=== PATIENT | male | born 2000 | race Caucasian/White ===

== ENCOUNTER 2022-07-05 19:45 | Inpatient (IN) | payer BC, MEDICAID ==
[2022-07-05 19:55] VITALS: RESP 18
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
[2022-07-06] MEDS ORDERED: LORazepam 1 MG TAB PO PRN (00:07)
[2022-07-06] MEDS ORDERED: MAG HYDROX/AL HYDROX/SIMETH 30 ML CUP PO PRN (00:07)
[2022-07-06] MEDS ORDERED: HALOPERIDOL LACTATE 5 MG/ML 1 ML VIAL IM PRN (00:07)
[2022-07-06] MEDS ORDERED: MAGNESIUM HYDROXIDE 2,400 MG/10 ML CUP PO PRN (00:07)
[2022-07-06] MEDS ORDERED: LORazepam 2 MG/ML INJ IM PRN (00:14)
[2022-07-06] MEDS ORDERED: haloperidoL 5 MG TAB PO PRN (00:15)
[2022-07-06 01:26] LABS: Amorphous Sediment,Urine Rare /hpf; Appearance,Urine Turbid (Clear); Bacteria,Urine Rare /hpf; Bilirubin,Urine Negative (Negative); Blood,Urine Negative (Negative); Color,Urine Yellow; Glucose,Urine (UA) Negative (Negative); Ketones,Urine Negative (Negative); Leukocyte Esterase,Urine Negative (Negative); Mucus,Urine Occasional /hpf; Nitrite,Urine Negative (Negative); Protein,Urine Trace (Negative); Specific Gravity,Urine 1.025 (1.001-1.035); WBC,Urine 1 /hpf (0-5)
[2022-07-06] MEDS: metFORMIN 500 MG TAB PO SCH (08:16)
[2022-07-06] MEDS: DEXMETHYLPHENIDATE HCL 30 MG PO SCH (08:47)
[2022-07-06] MEDS ORDERED: risperiDONE 0.5 MG TAB PO SCH (09:00)
[2022-07-06 09:19] LABS: Urine Alcohol Negative (Negative); Urine Barbiturate Negative (Negative); Urine Cocaine Negative (Negative); Urine Methadone Negative (Negative); Urine Opiates Negative (Negative); Urine Phencyclidine Negative (Negative)
[2022-07-06] MEDS: ACETAMINOPHEN TAB 325 MG TAB PO PRN ×2 (09:33→18:50)
[2022-07-06 10:53] LABS: Basophils % (A) 0 %; Eosinophils # (A) 0.1 k/uL (0-0.7); Eosinophils % (A) 2 %; HCT 42.8 % (39.0-53.0); HGB 14.3 gm/dL (13.0-17.5); Lymphocytes # (A) 1.2 k/uL (1.0-4.8); Lymphocytes % (A) 17 %; MCH 28.1 pg (25.0-35.0); MCHC 33.4 g/dL (31.0-37.0); MCV 84.2 fL (80.0-100.0); Mean Platelet Volume 8.5; Monocytes # (A) 0.4 k/uL (0-1.0); Monocytes % (A) 5 %; Neutrophils # (A) 5.2 k/uL (1.3-7.7); Neutrophils % (A) 74 %; Platelet Count 240 k/uL (150-450); RBC 5.09 m/uL (4.30-5.90); RDW 13.4 % (11.5-15.5)
[2022-07-06 11:22] LABS: ALT 25 U/L (4-49); AST 26 U/L (17-59); African American GFR (CKD) >90 (>60 ml/min/1.73 sqM); Albumin 4.1 g/dL (3.5-5.0); Alkaline Phosphatase 119 U/L (38-126); Anion Gap 9 mmol/L; Blood Urea Nitrogen 14 mg/dL (9-20); Calcium 9.3 mg/dL (8.4-10.2); Carbon Dioxide 26 mmol/L (22-30); Chloride 104 mmol/L (98-107); Glucose 96 mg/dL (74-99); Non-African American GFR(CKD) >90 (>60 ml/min/1.73 sqM); Potassium 4.5 mmol/L (3.5-5.1); Sodium 139 mmol/L (137-145); Total Bilirubin 0.5 mg/dL (0.2-1.3); Total Protein 7.1 g/dL (6.3-8.2)
--- NOTE | 2022-07-06 13:24 | P.MDCNMH ---
History of Present Illness H&P Date: 07/06/22 This is a 22-year-old male was recently brought to the emergency department with family and had recent changes in medication including his risperidone that had been titrated down and started noticing some increasing aggression and violence with his family. Patient was brought here voluntarily and agreeable to come to the psychiatric unit for evaluation. Patient reports he follows with Dr. Bruce in the outpatient setting with no significant past medical history other than ADD/ADHD with anxiety/bipolar depression. Patient reports he had been slightly overwhelmed at home and having thoughts of suicide and reports to policy writer he is not suicidal he just feels as if he is not in control of his thoughts since the medication changes. Patient denies chest pain or shortness of breath. Patient reports he is eating and tolerating. Patient reports his sleep is all over the place and he also mentioned "I just need a break". Patient reports he has been attending group therapy sessions and compliant with medications. Review Of Systems: Constitutional: No fever, no chills, no night sweats. No weight change. No weakness, fatigue or lethargy. No daytime sleepiness. EENT: No headache. No blurred vision or double vision, no loss of vision. No loss of Hearing, no ringing in the ears, no dizziness. No nasal drainage or congestion. No epistaxis. No sore throat. Lungs: No shortness of breath, cough, no sputum production. No wheezing. Cardiovascular: No chest pain, no lower extremity edema. No palpitations. No paroxysmal nocturnal dyspnea. No orthopnea. No lightheadedness or dizziness. No syncopal episodes. Abdominal: No abdominal pain. No nausea, vomiting. No diarrhea. No constipation. No bloody or tarry stools.. No loss of appetite. Genitourinary: No dysuria, increased frequency, urgency. No urinary retention. Musculoskeletal: No myalgias. No muscle weakness, no gait dysfunction, no frequent falls. No back pain. No neck pain. Integumentary: No wounds, no lesions. No rash or pruritus. No unusual bruising. No change in hair or nails. Neurologic: No aphasia. No facial droop. No change in mentation. No head injury. No headache. No paralysis. No paresthesia. Psychiatric: Reports increased anxiety and depression with increased aggression and mood swings Endocrine: No abnormal blood sugars. No weight change. No excessive sweating or thirst. No cold intolerance. PHYSICAL EXAMINATION: GENERAL: The patient is alert and oriented x4, Well developed, well nourished. Obese HEENT: Pupils are round and equally reacting to light. EOMI. no scleral icterus. No conjunctival pallor. Normocephalic, atraumatic. No pharyngeal erythema. No thyromegaly. CARDIOVASCULAR: S1 and S2 muffled PULMONARY: Breath sounds clear to auscultation with no wheezing or rhonchi noted. ABDOMEN: soft. Nontender on exam. obese. non-distended, normoactive bowel so unds. No palpable organomegaly. MUSCULOSKELETAL: No joint swelling or deformity. EXTREMITIES: No cyanosis, clubbing, or pedal edema. NEUROLOGICAL: Gross neurological examination did not reveal any focal deficits. Gait steady on exam SKIN: No rashes. Assessment: Suicidal ideation, initially in the ER although denying this on exam History of ADD/ADHD History of anxiety with depression and panic disorder Obesity with a BMI of 34.7 GI prophylaxis Full code Plan: Recommend to continue with current medications and management per psychiatric services. Patient was voluntarily signed to the psychiatric unit for further evaluation Patient reports initially he was reporting thoughts of suicidal ideation although is denying any of this at this time and reports he noted increased agitation and aggression and thought racing after medication adjustments were done most recently a few weeks ago Home medications reviewed and resumed Encourage the patient to be compliant with medications and psychiatric evaluation along with group therapy sessions Labs reviewed and within normal limits Thank you kindly for this consultation The impression and plan of care has been dictated by Suzanna Issa, nurse practitioner as directed. Dr. Safia MD I have performed a history and examination and MDM of this patient, discussed the same with the dictator, and agree with the dictator's assessment and plan as written ,documented as a scribe. Based on total visit time, I have performed more than 50% of the visit. Any additional findings or plans will be noted. Past Medical History Past Medical History: No Reported History History of Any Multi-Drug Resistant Organisms: None Reported Past Surgical History: No Surgical Hx Reported Past Psychological History: ADD/ADHD, Anxiety, Depression, Panic Disorder Smoking Status: Never smoker Past Alcohol Use History: None Reported Past Drug Use History: None Reported Medications and Allergies Home Medications Medication Instructions Recorded Confirmed Type Dexmethylphenidate HCl [Focalin Xr] 30 mg PO DAILY 07/05/22 07/05/22 History Dexmethylphenidate HCl [Focalin] 10 mg PO DAILY@1500 07/05/22 07/05/22 History FLUoxetine HCL 40 mg PO DAILY 07/05/22 07/05/22 History Multivitamins, Thera [Multivitamin 1 tab PO DAILY@1500 07/05/22 07/05/22 History (formulary)] metFORMIN HCL [Glucophage] 1,000 mg PO DAILY 07/05/22 07/05/22 History risperiDONE [RisperDAL] 0.5 mg PO BID 07/05/22 07/05/22 History Allergies Allergy/AdvReac Type Severity Reaction Status Date / Time No Known Allergies Allergy Verified 07/06/22 01:43 Physical Exam Vitals: Vital Signs Temp Pulse Pulse Resp BP BP Pulse Ox 07/06/22 00:40 97.6 F 75 18 118/56 97 07/05/22 19:47 98.4 F 80 18 138/84 98 Intake and Output 07/05/22 07/06/22 07/06/22 22:59 06:59 14:59 Other: Weight 113.398 kg 116 kg Cranial Nerve Examination - Cranial Nerves Cranial Nerve I- Olfactory: Intact Cranial Nerve II- Optic: Intact Cranial Nerve III- Oculomotor: Intact Cranial Nerve IV- Trochlear: Intact Cranial Nerve V- Trigeminal: Intact Cranial Nerve - Abducens: Intact Cranial Nerve VII- Facial: Intact Cranial Nerve VIII- Auditory: Intact Cranial Nerve IX- Glossopharyngeal: Intact Cranial Nerve X- Vagus: Intact Cranial Nerve XI- Accessory: Intact Cranial Nerve XII- Hypoglossal: Intact Results CBC & Chem 7: 07/06/22 09:49 07/06/22 09:49 Labs: Abnormal Lab Results - Last 24 Hours (Table) 07/06/22 Range/Units 01:12 Urine Protein Trace H (Negative) Amorphous Sediment Rare H (None) /hpf Urine Bacteria Rare H (None) /hpf Urine Mucus Occasional H (None) /hpf Assessment and Plan Time with Patient: Less than 30
[2022-07-06] MEDS ORDERED: risperiDONE 0.5 MG TAB PO STA (13:29)
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
[2022-07-06] MEDS: DEXMETHYLPHENIDATE HCL 10 MG PO SCH (14:24)
[2022-07-06] MEDS ORDERED: MULTIVITAMINS, THERA 1 EACH TAB PO SCH (15:00)
[2022-07-06] MEDS: risperiDONE 1 MG TAB PO SCH (19:46)
[2022-07-07 06:28] VITALS: BP 126/68; PULSE 72; TEMP 97.9
[2022-07-07] MEDS: risperiDONE 1 MG TAB PO SCH (08:45)
[2022-07-07] MEDS: metFORMIN 500 MG TAB PO SCH (08:45)
[2022-07-07] MEDS: DEXMETHYLPHENIDATE HCL 30 MG PO SCH (08:45)
[2022-07-07] MEDS: DEXMETHYLPHENIDATE HCL 10 MG PO SCH (08:46)
[2022-07-07 10:23] LABS: Basophils % (A) 0 %; Eosinophils # (A) 0.1 k/uL (0-0.7); Eosinophils % (A) 2 %; HCT 43.9 % (39.0-53.0); HGB 14.4 gm/dL (13.0-17.5); Lymphocytes # (A) 1.2 k/uL (1.0-4.8); Lymphocytes % (A) 18 %; MCH 28.1 pg (25.0-35.0); MCHC 32.9 g/dL (31.0-37.0); MCV 85.4 fL (80.0-100.0); Mean Platelet Volume 8.2; Monocytes # (A) 0.4 k/uL (0-1.0); Monocytes % (A) 6 %; Neutrophils # (A) 4.6 k/uL (1.3-7.7); Neutrophils % (A) 72 %; Platelet Count 279 k/uL (150-450); RBC 5.14 m/uL (4.30-5.90); RDW 13.2 % (11.5-15.5); WBC 6.5 k/uL (3.8-10.6)
[2022-07-07 10:36] LABS: ALT 25 U/L (4-49); AST 27 U/L (17-59); African American GFR (CKD) >90 (>60 ml/min/1.73 sqM); Albumin 4.3 g/dL (3.5-5.0); Alkaline Phosphatase 110 U/L (38-126); Anion Gap 7 mmol/L; Blood Urea Nitrogen 11 mg/dL (9-20); Calcium 9.4 mg/dL (8.4-10.2); Carbon Dioxide 28 mmol/L (22-30); Chloride 104 mmol/L (98-107); Glucose 90 mg/dL (74-99); Non-African American GFR(CKD) >90 (>60 ml/min/1.73 sqM); Potassium 4.6 mmol/L (3.5-5.1); Sodium 139 mmol/L (137-145); Total Bilirubin 0.7 mg/dL (0.2-1.3); Total Protein 7.4 g/dL (6.3-8.2)
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
[2022-07-07 16:17] LABS: Chol/HDL Ratio 5.85 Ratio; LDL Cholesterol,Calculated 144.1 mg/dL (0.0-131.0)
== END 2022-07-07 13:54 | disposition home or self-care (01) | DRG 884 ==
LOC: EC 19:45 → 3MHU 23:46
PROVIDERS: ADMIT Psychiatry & Neurology Psychiatry; ATTEND Psychiatry & Neurology Psychiatry
DX: F84.0 Autistic disorder (principal); R45.851 Suicidal ideations; Z20.822 Contact with and (suspected) exposure to COVID-19; F43.10 Post-traumatic stress disorder, unspecified; F41.0 Panic disorder [episodic paroxysmal anxiety]; E66.9 Obesity, unspecified; F90.9 Attention-deficit hyperactivity disorder, unspecified type; F32.A Depression, unspecified; Y04.0XXA Assault by unarmed brawl or fight, initial encounter; Z76.5 Malingerer [conscious simulation]; Z79.84 Long term (current) use of oral hypoglycemic drugs; Z79.899 Other long term (current) drug therapy; Z68.39 Body mass index [BMI] 39.0-39.9, adult
CPT/HCPCS: 80053; 80061; 80306; 81001; 82075; 83036; 84146; 84443; 85025; 87635; 99285